=== PATIENT | male | born 1940 | race Caucasian/White ===

== ENCOUNTER 2018-03-06 09:56 | Inpatient (IN) | payer OTHER, MEDICAID ==
[~2018-03-06] VITALS: Ht 185.4 cm; Wt 66.7 kg
[2018-03-06 09:56] VITALS: BP_SYST 87
[2018-03-06] MEDS ORDERED: NS 500 ML IV ONE (10:30)
[2018-03-06] MEDS ORDERED: OMEP20CA10 PO (10:34)
[2018-03-06] MEDS ORDERED: PREG75CA PO (10:34)
[2018-03-06] MEDS ORDERED: APIX5TAB4 PO (10:34)
[2018-03-06] MEDS ORDERED: SIMV10TA2 PO (10:34)
[2018-03-06] MEDS ORDERED: SPIR25TA6 PO (10:34)
[2018-03-06] MEDS ORDERED: ESCI10TA PO (10:34)
[2018-03-06] MEDS ORDERED: LISI-209 PO (10:34)
[2018-03-06] MEDS ORDERED: CARV6.2554 PO (10:34)
[2018-03-06 10:58] LABS: BASOPHILS % (AUTO) 1.1 % (0.0-2.0); EOSINOPHILS # (AUTO) 0.1 K/uL (0.0-0.4); EOSINOPHILS % (AUTO) 2.4 % (0.0-4.0); HEMATOCRIT 25.1 % (36-54); HEMOGLOBIN 7.6 g/dL (14.0-18.0); LYMPHOCYTES % (AUTO) 45.2 % (20.5-51.5); MEAN CORPUSCULAR HEMOGLOBIN 24 pg (27-31); MEAN CORPUSCULAR HGB CONC 30 % (32-36); MEAN CORPUSCULAR VOLUME 80 fL (79.0-98.0); MONOCYTES # (AUTO) 0.6 K/uL (0.0-1.0); MONOCYTES % (AUTO) 14.2 % (1.7-9.3); NEUTROPHILS # (AUTO) 1.6 K/uL (1.8-7.7); NEUTROPHILS % (AUTO) 37.1 % (40.0-70.0); PLATELET COUNT (AUTO) 183 K/uL (130-430); RED BLOOD CELL COUNT(AUTO) 3.14 MIL/uL (4.2-6.2); RED CELL DISTRIBUTION WIDTH 21.1 % (9.0-15.0); WHITE BLOOD COUNT (AUTO) 4.3 K/uL (4.8-10.8)
[2018-03-06 11:07] LABS: ANION GAP 7 (5-15); CALCIUM 9.1 mg/dL (8.4-11.0); CHLORIDE 107 mmol/L (98-107); CREATININE 1.14 mg/dL (0.55-1.30); GLUCOSE 126 mg/dL (70-99); POTASSIUM 3.7 mmol/L (3.5-5.1); SODIUM SERUM 139 mmol/L (136-145); UREA NITROGEN, BLOOD 20 mg/dL (8-21)
[2018-03-06 11:10] LABS: INR 1.1 (0.80-1.20); PROTHROMBIN TIME 11.4 SECS (9.5-12.5)
[2018-03-06 11:13] LABS: ALANINE AMINOTRANSFERASE 22 U/L (12-78); ALBUMIN 2.5 g/dL (3.4-4.8); ASPARTATE AMINOTRANSFERASE 14 U/L (10-37); TOTAL BILIRUBIN 0.6 mg/dL (0.0-1.0)
[2018-03-06 11:14] LABS: ALCOHOL, BLOOD < 3 mg/dL (<10)
[2018-03-06] MEDS ORDERED: NACL 0.9% 1,000 ML IV SCH (12:53)
[2018-03-06] MEDS ORDERED: ACETAMINOPHEN 325 MG TABLET PO PRN ×2 (13:00→14:00)
[2018-03-06] MEDS ORDERED: ONDANSETRON HCL 4 MG/2 ML VIAL IVP PRN ×2 (13:00→14:00)
[2018-03-06 14:03] VITALS: BP_SYST 108
[2018-03-06] MEDS ORDERED: ACETAMINOPHEN 325 MG TABLET PO ONE (16:00)
[2018-03-06] MEDS ORDERED: DIPHENHYDRAMINE HCL 25 MG CAPSULE PO ONE (16:00)
[2018-03-06] MEDS: NACL 0.9% 1,000 ML IV SCH (16:33)
[2018-03-06] MEDS ORDERED: POTASSIUM CHLORIDE 20 MEQ TAB.PRT.SR PO ONE (17:00)
[2018-03-06 19:50] VITALS: BP_SYST 127
[2018-03-06] MEDS ORDERED: PREGABALIN 75 MG CAPSULE (LYRICA) PO SCH (21:00)
[2018-03-06] MEDS ORDERED: SIMVASTATIN 10 MG TABLET PO SCH ×2 (21:00)
[2018-03-06] MEDS ORDERED: NON-FORMULARY MEDICATION (Apixaban (Eliquis) 5 MG) PO SCH (21:00)
[2018-03-06] MEDS: PREGABALIN 75 MG CAPSULE (LYRICA) PO SCH (21:25)
[2018-03-06] MEDS: APIXABAN 2.5 MG TABLET PO SCH (21:25)
[2018-03-07 00:08] VITALS: BP_SYST 135
[2018-03-07] MEDS: NACL 0.9% 1,000 ML IV SCH ×4 (01:42→22:00)
[2018-03-07 03:27] LABS: BILIRUBIN,URINE NEGATIVE (NEGATIVE); BLOOD, URINE NEGATIVE (NEGATIVE); CLARITY/URINE CLEAR (CLEAR); COLOR,URINE YELLOW (YELLOW); GLUCOSE,URINE NEGATIVE (NEGATIVE); KETONES,URINE NEGATIVE (NEGATIVE); LEUKOCYTE ESTERASE ,URINE NEGATIVE (NEGATIVE); NITRITE, URINE NEGATIVE (NEGATIVE); PROTEIN URINE NEGATIVE (NEGATIVE); UROBILINOGEN,URINE 0.2 (0.2-1.0)
[2018-03-07 07:04] LABS: ANION GAP 5 (5-15); CALCIUM 8.8 mg/dL (8.4-11.0); CHLORIDE 109 mmol/L (98-107); CREATININE 0.98 mg/dL (0.55-1.30); GLUCOSE 79 mg/dL (70-99); POTASSIUM 3.9 mmol/L (3.5-5.1); SODIUM SERUM 139 mmol/L (136-145); UREA NITROGEN, BLOOD 16 mg/dL (8-21)
[2018-03-07 07:29] LABS: HEMATOCRIT 25.9 % (36-54); HEMOGLOBIN 8.2 g/dL (14.0-18.0); MEAN CORPUSCULAR HEMOGLOBIN 26 pg (27-31); MEAN CORPUSCULAR HGB CONC 32 % (32-36); MEAN CORPUSCULAR VOLUME 81 fL (79.0-98.0); PLATELET COUNT (AUTO) 154 K/uL (130-430); RED BLOOD CELL COUNT(AUTO) 3.19 MIL/uL (4.2-6.2); RED CELL DISTRIBUTION WIDTH 20.8 % (9.0-15.0); WHITE BLOOD COUNT (AUTO) 3.6 K/uL (4.8-10.8)
[2018-03-07 08:01] VITALS: BP_SYST 137
[2018-03-07] MEDS: APIXABAN 2.5 MG TABLET PO SCH (08:39)
[2018-03-07] MEDS: OMEPRAZOLE 20 MG CAPSULE.DR (PriLOSEC) PO SCH (08:40)
[2018-03-07] MEDS: CITALOPRAM HYDROBROMIDE 20 MG TABLET PO SCH (08:40)
[2018-03-07] MEDS: PREGABALIN 75 MG CAPSULE (LYRICA) PO SCH ×2 (08:40→20:51)
[2018-03-07] MEDS ORDERED: OMEPRAZOLE 20 MG CAPSULE.DR (PriLOSEC) PO SCH (09:00)
[2018-03-07] MEDS ORDERED: ESCITALOPRAM OXALATE 10 MG TABLET PO SCH (09:00)
[2018-03-07 09:01] LABS: TOTAL IRON BIND. CAPACITY 276 ug/dL (250-450)
[2018-03-07 11:55] LABS: BAND % (MANUAL) 2 % (0-6); LYMPHOCYTES % (MANUAL) 58 % (20-46)
[2018-03-07 11:56] LABS: BASOPHILS % (MANUAL) 0 % (0-2); EOSINOPHILS % (MANUAL) 0 % (0-7); MONOCYTES % (MANUAL) 4 % (0-11)
[2018-03-07] MEDS ORDERED: ASPIRIN 81 MG TABLET(ECOTRIN) PO ONE (12:30)
[2018-03-07 12:32] VITALS: BP_SYST 136
[2018-03-07] MEDS ORDERED: COMMUNICATION ORDER XX ONE (12:45)
[2018-03-07] MEDS: METOPROLOL SUCCINATE 25 MG TAB.SR.24H (TOPROL XL) PO SCH (12:52)
[2018-03-07] MEDS ORDERED: DIPHENHYDRAMINE HCL 12.5 MG/5 ML UDC PO ONE (16:30)
[2018-03-07] MEDS ORDERED: ACETAMINOPHEN 325 MG TABLET PO ONE (16:30)
[2018-03-07 16:37] VITALS: BP_SYST 130
[2018-03-07] MEDS ORDERED: BISACODYL 5 MG TABLET.DR (DULCOLAX) PO ONE (17:00)
[2018-03-07] MEDS ORDERED: GOLYTELY / COLYTE SOLUTION 4 LITERS PO ONE (18:00)
[2018-03-07 20:00] VITALS: BP_SYST 132
[2018-03-07] MEDS ORDERED: LORazepam 1 MG TABLET PO ONE (20:45)
[2018-03-08 00:55] VITALS: BP_SYST 141
[2018-03-08] MEDS: NACL 0.9% 1,000 ML IV SCH ×2 (06:32→14:22)
[2018-03-08] MEDS ORDERED: fentaNYL CITRATE/PF 100 MCG/2 ML AMP ONE (06:35)
[2018-03-08] MEDS ORDERED: MIDAZOLAM HCL 5 MG/5 ML VIAL ONE ×2 (06:35)
[2018-03-08] MEDS ORDERED: SIMETHICONE 40 MG/0.6 ML ML ONE (06:36)
[2018-03-08 06:46] LABS: ANION GAP 6 (5-15); CHLORIDE 111 mmol/L (98-107); CREATININE 0.95 mg/dL (0.55-1.30); GLUCOSE 80 mg/dL (70-99); POTASSIUM 3.4 mmol/L (3.5-5.1); SODIUM SERUM 142 mmol/L (136-145); UREA NITROGEN, BLOOD 10 mg/dL (8-21)
[2018-03-08 06:56] LABS: BASOPHILS # (AUTO) 0.1 K/uL (0.0-0.2); BASOPHILS % (AUTO) 1.7 % (0.0-2.0); EOSINOPHILS # (AUTO) 0.1 K/uL (0.0-0.4); EOSINOPHILS % (AUTO) 1.3 % (0.0-4.0); HEMATOCRIT 30.4 % (36-54); HEMOGLOBIN 9.8 g/dL (14.0-18.0); LYMPHOCYTES % (AUTO) 50.8 % (20.5-51.5); MEAN CORPUSCULAR HEMOGLOBIN 27 pg (27-31); MEAN CORPUSCULAR HGB CONC 32 % (32-36); MEAN CORPUSCULAR VOLUME 82 fL (79.0-98.0); MONOCYTES # (AUTO) 0.4 K/uL (0.0-1.0); MONOCYTES % (AUTO) 10.1 % (1.7-9.3); NEUTROPHILS # (AUTO) 1.5 K/uL (1.8-7.7); NEUTROPHILS % (AUTO) 36.1 % (40.0-70.0); PLATELET COUNT (AUTO) 190 K/uL (130-430); RED CELL DISTRIBUTION WIDTH 20.4 % (9.0-15.0); WHITE BLOOD COUNT (AUTO) 4.1 K/uL (4.8-10.8)
[2018-03-08] MEDS ORDERED: MIDAZOLAM HCL 5 MG/5 ML VIAL IVP ONE ×2 (08:07→08:10)
[2018-03-08] MEDS ORDERED: fentaNYL CITRATE/PF 100 MCG/2 ML AMP IVP ONE (08:07)
[2018-03-08] MEDS: METOPROLOL SUCCINATE 25 MG TAB.SR.24H (TOPROL XL) PO SCH (09:00)
[2018-03-08] MEDS: OMEPRAZOLE 20 MG CAPSULE.DR (PriLOSEC) PO SCH (09:00)
[2018-03-08] MEDS: CITALOPRAM HYDROBROMIDE 20 MG TABLET PO SCH (09:00)
[2018-03-08] MEDS: PREGABALIN 75 MG CAPSULE (LYRICA) PO SCH (09:00)
[2018-03-08] MEDS: ATORVASTATIN 20 MG TABLET PO SCH (10:19)
[2018-03-08] MEDS: LISINOPRIL 5 MG TABLET PO SCH (10:21)
[2018-03-08] MEDS: LORazepam 1 MG TABLET PO PRN ×2 (14:20→20:32)
[2018-03-08 15:02] VITALS: BP_SYST 127
[2018-03-08] MEDS ORDERED: PANTOPRAZOLE SODIUM 40 MG TAB PO ONE (15:45)
[2018-03-08] MEDS ORDERED: POTASSIUM CHLORIDE 20 MEQ TAB.PRT.SR PO ONE (15:45)
[2018-03-08] MEDS ORDERED: CHOLECALCIFEROL (VITAMIN D3) 2,000 UNIT TABLET PO ONE (16:15)
[2018-03-08] MEDS ORDERED: MULTIVITS,CA,MINERALS/IRON/FA 1 TABLET PO ONE (16:15)
[2018-03-08] MEDS: QUEtiapine FUMARATE 25 MG TABLET PO SCH (17:16)
[2018-03-08] MEDS: SOD FERRIC GLUC COMPLEX/SUC 125 MG in NS 100 ML IV SCH (18:20)
[2018-03-08 20:00] VITALS: BP_SYST 126
[2018-03-08] MEDS: APIXABAN 2.5 MG TABLET PO SCH (20:34)
[2018-03-08] MEDS ORDERED: PREGABALIN 75 MG CAPSULE (LYRICA) PO SCH (21:00)
[2018-03-09] VITALS: BP_SYST 128
[2018-03-09] MEDS: LORazepam 1 MG TABLET PO PRN ×2 (06:14→19:40)
[2018-03-09] MEDS: NACL 0.9% 1,000 ML IV SCH (06:18)
[2018-03-09 08:02] VITALS: BP_SYST 122
[2018-03-09 08:19] LABS: ANION GAP 7 (5-15); CALCIUM 8.6 mg/dL (8.4-11.0); CHLORIDE 108 mmol/L (98-107); GLUCOSE 85 mg/dL (70-99); POTASSIUM 3.6 mmol/L (3.5-5.1); SODIUM SERUM 141 mmol/L (136-145); UREA NITROGEN, BLOOD 11 mg/dL (8-21)
[2018-03-09] MEDS: PREGABALIN 25 MG CAPSULE (LYRICA) PO SCH ×2 (08:31→21:38)
[2018-03-09 08:32] LABS: BASOPHILS # (AUTO) 0.1 K/uL (0.0-0.2); BASOPHILS % (AUTO) 1.3 % (0.0-2.0); EOSINOPHILS % (AUTO) 0.7 % (0.0-4.0); HEMOGLOBIN 9.7 g/dL (14.0-18.0); LYMPHOCYTES # (AUTO) 2.5 K/uL (1.0-5.5); LYMPHOCYTES % (AUTO) 49.6 % (20.5-51.5); MEAN CORPUSCULAR HEMOGLOBIN 26 pg (27-31); MEAN CORPUSCULAR HGB CONC 31 % (32-36); MEAN CORPUSCULAR VOLUME 82 fL (79.0-98.0); MONOCYTES # (AUTO) 0.4 K/uL (0.0-1.0); MONOCYTES % (AUTO) 8.7 % (1.7-9.3); NEUTROPHILS # (AUTO) 1.9 K/uL (1.8-7.7); NEUTROPHILS % (AUTO) 39.7 % (40.0-70.0); PLATELET COUNT (AUTO) 167 K/uL (130-430); RED BLOOD CELL COUNT(AUTO) 3.76 MIL/uL (4.2-6.2); RED CELL DISTRIBUTION WIDTH 20.1 % (9.0-15.0); WHITE BLOOD COUNT (AUTO) 4.9 K/uL (4.8-10.8)
[2018-03-09] MEDS: LISINOPRIL 5 MG TABLET PO SCH (08:32)
[2018-03-09] MEDS: APIXABAN 2.5 MG TABLET PO SCH ×2 (08:34→21:38)
[2018-03-09] MEDS: CITALOPRAM HYDROBROMIDE 20 MG TABLET PO SCH (08:34)
[2018-03-09] MEDS: METOPROLOL SUCCINATE 25 MG TAB.SR.24H (TOPROL XL) PO SCH (08:34)
[2018-03-09] MEDS: ATORVASTATIN 20 MG TABLET PO SCH (08:34)
[2018-03-09] MEDS ORDERED: MULTIVITS,CA,MINERALS/IRON/FA 1 TABLET PO SCH (09:00)
[2018-03-09] MEDS ORDERED: CHOLECALCIFEROL (VITAMIN D3) 2,000 UNIT TABLET PO SCH (09:00)
[2018-03-09] MEDS ORDERED: PANTOPRAZOLE SODIUM 40 MG TAB PO SCH (09:00)
[2018-03-09 09:17] LABS: RETICULOCYTE COUNT 0.8 % (0.5-1.5)
[2018-03-09 12:00] VITALS: BP_SYST 125
[2018-03-09 16:00] VITALS: BP_SYST 128
[2018-03-09] MEDS: QUEtiapine FUMARATE 25 MG TABLET PO SCH (17:18)
[2018-03-09] MEDS: SOD FERRIC GLUC COMPLEX/SUC 125 MG in NS 100 ML IV SCH (17:19)
[2018-03-09 19:49] VITALS: BP_SYST 128
[2018-03-09 20:00] VITALS: BP_SYST 129
[2018-03-09] MEDS ORDERED: METO25TA3 PO ×2 (20:09→20:11)
[2018-03-09] MEDS ORDERED: LISI-209 PO (20:12)
== END 2018-03-09 22:45 | DRG 314 ==
LOC: SED 09:56 → SMU 12:53 → SED 13:55 → STU 15:31
PROVIDERS: ADMIT Internal Medicine; ATTEND Internal Medicine
PROC: 30233N1 Transfusion of Nonautologous Red Blood Cells into Peripheral Vein, Percutaneous Approach (ICD-10-PCS; 2018-03-06)
PROC: 0DB78ZX Excision of Stomach, Pylorus, Via Natural or Artificial Opening Endoscopic, Diagnostic (ICD-10-PCS; 2018-03-08)
PROC: 0DB98ZX Excision of Duodenum, Via Natural or Artificial Opening Endoscopic, Diagnostic (ICD-10-PCS; principal; 2018-03-08 08:00)
DX: I95.9 Hypotension, unspecified (principal); G93.41 Metabolic encephalopathy; E43 Unspecified severe protein-calorie malnutrition; I42.9 Cardiomyopathy, unspecified; C90.00 Multiple myeloma not having achieved remission; D68.59 Other primary thrombophilia; I69.351 Hemiplegia and hemiparesis following cerebral infarction affecting right dominant side; Z68.1 Body mass index [BMI] 19.9 or less, adult; E78.5 Hyperlipidemia, unspecified; I25.5 Ischemic cardiomyopathy; K21.9 Gastro-esophageal reflux disease without esophagitis; K29.00 Acute gastritis without bleeding; F03.90 Unspecified dementia, unspecified severity, without behavioral disturbance, psychotic disturbance, mood disturbance, and anxiety; I25.10 Atherosclerotic heart disease of native coronary artery without angina pectoris; E86.0 Dehydration; I48.2 Chronic atrial fibrillation; R55 Syncope and collapse; M51.36 Other intervertebral disc degeneration, lumbar region; I11.0 Hypertensive heart disease with heart failure; I50.9 Heart failure, unspecified; G62.0 Drug-induced polyneuropathy; K52.9 Noninfective gastroenteritis and colitis, unspecified; R13.10 Dysphagia, unspecified; D50.9 Iron deficiency anemia, unspecified; D63.8 Anemia in other chronic diseases classified elsewhere; E09.9 Drug or chemical induced diabetes mellitus without complications; T38.0X5A Adverse effect of glucocorticoids and synthetic analogues, initial encounter; T45.1X5A Adverse effect of antineoplastic and immunosuppressive drugs, initial encounter; Y92.89 Other specified places as the place of occurrence of the external cause; I69.320 Aphasia following cerebral infarction; I69.391 Dysphagia following cerebral infarction; Z85.46 Personal history of malignant neoplasm of prostate; Z79.899 Other long term (current) drug therapy; Z90.49 Acquired absence of other specified parts of digestive tract; Z87.891 Personal history of nicotine dependence; Z92.21 Personal history of antineoplastic chemotherapy
CPT/HCPCS: 36415; 43239; 70450-TC; 71045; 74018; 80048; 80053; 81003; 82728; 83540-TC; 83550-TC; 83605; 83735-TC; 84484; 85007; 85025; 85027; 85044-TC; 85610-TC; 85730-TC; 86886; 86900; 86901; 86920; 87040-TC; 87081; 88305; 88313; 93005; 93306; 96360; 99285; G0482; J2250; J2916; J3010; J7030; J7040; J7050; P9021; Q0163

== ENCOUNTER 2018-03-22 09:29 | Outpatient (CLI) | payer OTHER, MEDICAID ==
[~2018-03-22 09:29] MED LIST: APIX5TAB4 PO; ESCI10TA PO; LISI-209 PO; METO25TA3 PO; OMEP20CA10 PO; PREG75CA PO; SIMV10TA2 PO
== END 2018-03-22 19:24 | disposition home or self-care (01) ==
LOC: SMI 09:29
PROVIDERS: ATTEND Internal Medicine
DX: I67.82 Cerebral ischemia (principal); G31.9 Degenerative disease of nervous system, unspecified
CPT/HCPCS: 70551